=== PATIENT | male | born 1960 | race African-American/Black ===

== ENCOUNTER 2016-11-30 05:30 | Emergency (ER) | payer OTHER ==
[~2016-11-30] VITALS: Ht 188 cm; Wt 86.4 kg
[~2016-11-30 05:30] MED LIST: AMLO10TA55 PO; ATEN-187 PO; BACL10TA PO; GABA-531 PO; HYDR25TA PO; LAMO100 PO
[2016-11-30] MEDS ORDERED: LAMO200T7 PO (05:41)
[2016-11-30] MEDS ORDERED: ATEN50TA PO (05:41)
[2016-11-30] MEDS ORDERED: PREG50 PO (05:41)
[2016-11-30] MEDS ORDERED: HYDR50TA PO (05:41)
[2016-11-30] MEDS ORDERED: FentaNYL CITRATE-PF 100 MCG/2 ML VIAL IVP ONE (06:00)
[2016-11-30] MEDS ORDERED: ACETAMINOPHEN 500 MG TABLET PO ONE (06:15)
[2016-11-30 07:07] VITALS: BP 130/79
== END 2016-11-30 07:09 | disposition home or self-care (01) ==
LOC: EMS 05:32
DX: S50.01XA Contusion of right elbow, initial encounter (principal); F41.9 Anxiety disorder, unspecified; I10 Essential (primary) hypertension; M47.9 Spondylosis, unspecified; M50.30 Other cervical disc degeneration, unspecified cervical region; F10.20 Alcohol dependence, uncomplicated; F12.10 Cannabis abuse, uncomplicated; Z88.8 Allergy status to other drugs, medicaments and biological substances; W22.8XXA Striking against or struck by other objects, initial encounter; Y93.89 Activity, other specified; Y92.89 Other specified places as the place of occurrence of the external cause; Y99.9 Unspecified external cause status
CPT/HCPCS: 99284

== ENCOUNTER 2021-02-28 05:04 | Emergency (ER) | payer MEDICARE, OTHER ==
[~2021-02-28] VITALS: Ht 188 cm; Wt 86.4 kg
[~2021-02-28 05:04] MED LIST changes: -ATEN-187 PO; +ATEN-72 PO; -BACL10TA PO; -GABA-531 PO; -HYDR25TA PO; +HYDR50TA PO; -LAMO100 PO; +LAMO200T10 PO; +PREG50 PO
[2021-02-28] MEDS ORDERED: PREG75 PO (05:44)
[2021-02-28 06:10] VITALS: BP 126/62
[2021-02-28 06:25] LABS: COVID AG,FIA SOURCE NASAL SWAB
[2021-02-28] MEDS ORDERED: ALBUTEROL SULFATE HFA 90 MCG/PUFF 8 GM INHALER IH ONE (06:45)
== END 2021-02-28 06:40 | disposition home or self-care (01) ==
LOC: EMS 05:06
DX: J44.9 Chronic obstructive pulmonary disease, unspecified (principal); I10 Essential (primary) hypertension; F12.90 Cannabis use, unspecified, uncomplicated; Z76.0 Encounter for issue of repeat prescription; Z20.822 Contact with and (suspected) exposure to COVID-19
CPT/HCPCS: 94640; 99283; J3535

== ENCOUNTER 2022-12-03 10:20 | Emergency (ER) | payer MEDICARE, OTHER ==
[~2022-12-03] VITALS: Ht 188 cm; Wt 97.7 kg
[~2022-12-03 10:20] MED LIST changes: -PREG50 PO; +PREG75 PO
[2022-12-03 10:21] VITALS: TEMP 98
[2022-12-03 11:33] VITALS: BP 139/80; PULSE 68; RESP 16
[2022-12-03] MEDS ORDERED: BACITRACIN 0.9 GM PACKET OINTMENT TP ONE (12:30)
[2022-12-03] MEDS ORDERED: PERTUSS(ACELL),DIPH,TET VAC/PF 0.5 ML SYRINGE IM. ONE (12:30)
[2022-12-03] MEDS ORDERED: LIDOCAINE 1% 10 ML VIAL SQ ONE (12:30)
== END 2022-12-03 13:02 | disposition home or self-care (01) ==
LOC: EMS 10:20
DX: S91.311A Laceration without foreign body, right foot, initial encounter (principal); F10.20 Alcohol dependence, uncomplicated; F41.9 Anxiety disorder, unspecified; I10 Essential (primary) hypertension; F12.90 Cannabis use, unspecified, uncomplicated; Z98.890 Other specified postprocedural states; Z88.8 Allergy status to other drugs, medicaments and biological substances; W18.09XA Striking against other object with subsequent fall, initial encounter; Y93.89 Activity, other specified; Y92.098 Other place in other non-institutional residence as the place of occurrence of the external cause; Y99.8 Other external cause status
CPT/HCPCS: 99283; 90715; 90471; 12002; J3490